=== PATIENT | female | born 1995 | race Caucasian/White ===

== ENCOUNTER 2023-05-15 14:41 | Emergency (ER) | payer BC ==
[~2023-05-15] VITALS: Ht 160 cm; Wt 117.9 kg
[2023-05-15] MEDS ORDERED: TYLENOL325 MG PO (15:16)
[2023-05-15] MEDS ORDERED: NAPROSYN500 MG PO (15:16)
[2023-05-15 16:08] VITALS: BP 138/75; PULSE 82; RESP 18; TEMP 98.2; O2SAT 100
== END 2023-05-15 16:03 | disposition home or self-care (01) ==
LOC: FSED 14:51
DX: S93.491A Sprain of other ligament of right ankle, initial encounter (principal); W01.0XXA Fall on same level from slipping, tripping and stumbling without subsequent striking against object, initial encounter; Y93.01 Activity, walking, marching and hiking; Y92.89 Other specified places as the place of occurrence of the external cause
CPT/HCPCS: 99284